=== PATIENT | female | born 1950 | race Caucasian/White ===

== ENCOUNTER → 2016-10-29 | Outpatient (CLI) | payer OTHER ==
[~2016-10-29] MED LIST: INVOKANA100 M1 PO; METFORMIN HCL1000 MG PO; NEURONTIN300 MG PO; OMEPRAZOLE D/R20 MG PO; PRAVASTATIN SOD20 MG PO; Synthroid,Levo88 MCG PO; TRADJENTA5 M1 PO; ZESTORETIC 20-1 EACH PO; ZOSTAVAX V19400 UNIT SQ
[2016-10-29 15:19] LABS: ACT PARTIAL THROMBO TIME 25.5 SECONDS (20.8-31.5)
== END | disposition home or self-care (01) ==
LOC: LAB 12:42
PROVIDERS: Orthopaedic Surgery
DX: Z01.818 Encounter for other preprocedural examination (principal); M17.11 Unilateral primary osteoarthritis, right knee; D68.8 Other specified coagulation defects; Z79.899 Other long term (current) drug therapy; Z96.651 Presence of right artificial knee joint

== ENCOUNTER → 2016-10-30 | Outpatient (CLI) | payer OTHER ==
[2016-10-30 12:55] LABS: BILIRUBIN NEGATIVE (NEGATIVE); BLOOD NEGATIVE (NEGATIVE); CLARITY SL CLOUDY (CLEAR); COLOR YELLOW (YELLOW); GLUCOSE 3+ (NEGATIVE); KETONE NEGATIVE (NEGATIVE); LEUKO ESTERASE 1+ (NEGATIVE); NITRITE NEGATIVE (NEGATIVE); SPECIFIC GRAVITY <= 1.005 (1.005-1.030); UROBILINOGEN 0.2 E.U./dl (0.2-1.0)
[2016-10-30 13:29] LABS: BACTERIA 2+; RBC 0-2 rbc/hpf (0-2)
== END | disposition home or self-care (01) ==
LOC: LAB 11:43
PROVIDERS: Orthopaedic Surgery
DX: M17.11 Unilateral primary osteoarthritis, right knee (principal); D68.8 Other specified coagulation defects; Z79.899 Other long term (current) drug therapy

== ENCOUNTER 2016-11-05 03:06 | Inpatient (IN) | payer OTHER ==
[2016-11-05] VITALS (11 sets, daily range): BP systolic 98–145; BP diastolic 49–81
[~2016-11-05] VITALS: Ht 162.6 cm; Wt 78.0 kg
--- NOTE | ~2016-11-05 | O ---
[place], [place] OPERATIVE NOTE NAME: SHEELA CANALES [facility] #: [id number] UNIT #: [id number] ROOM: [facility] DOCTOR: ARYA REYNOSO DO BIRTHDATE: [birth year] DOS: 11/05/2016 PREOPERATIVE DIAGNOSIS: Osteoarthritis, right knee. POSTOPERATIVE DIAGNOSIS: Osteoarthritis, right knee. PROCEDURE: Right total knee arthroplasty (Biomet Vanguard size 60 mm open box femur, 63 mm tibial baseplate, 10 mm PS plus poly insert, Palacos cement). ANESTHESIA: Spinal sedation. SURGEON: Arya Reynoso D.O. ESTIMATED BLOOD LOSS: 75 mL. COMPLICATIONS: None. INDICATIONS FOR PROCEDURE: This is a 66-year-old female seen in the office regarding chronic right knee pain. Please see details of the office note regarding additional patient's clinical history, findings, and indications for surgery. The patient has advanced right knee osteoarthritis and has failed nonsurgical treatment. I therefore did discuss with her options for surgery. Recommendations were for right total knee arthroplasty. Benefits, risks, complications were discussed with the patient as noted. Informed consent obtained. DESCRIPTION OF PROCEDURE: With the patient having been identified and the operative limb marked, she was taken to the operative suite, transferred to the position, administered a spinal anesthetic by the Department of Anesthesia. She was then repositioned supine. Sedation was provided during the case as per Anesthesia. A Jean Baptiste catheter was placed. A well-padded thigh tourniquet placed on the right lower leg. Right leg was then prepped and draped in the usual sterile fashion. Prior to elevation of the tourniquet, IV Ancef 2 grams had been given. Again, right leg prepped and draped in the usual sterile fashion. Esmarch bandage used to exsanguinate, the limb tourniquet elevated to 300 mmHg. An indelible marker was used to antonio an incision from just above the patella to the medial side of the tibial tubercle. Sharp dissection carried through skin and subcutaneous tissue and fat down to the quadriceps and patellar tendon and medial retinaculum. With sharp dissection, a standard median parapatellar arthrotomy was performed. Moderate clear yellow fluid suctioned from the knee joint. The patient had varus deformity. Medial release performed in the upper and medial tibial plateau. The infrapatellar fat pad was excised. Medial and lateral collateral retractors placed. Knee was put in flexion. The patient had [id number] changes, grade 4 medial compartment, large notch osteophytes noted as well. Large femoral tibial osteophytes noted and removed. Remnants of the ACL, PCL, medial and lateral meniscus were excised. Notch osteophytes were removed. A collateral retractor was placed posterior for protection of the neurovascular bundle and ____ of the tibia anterior. An indelible marker was used to antonio the tibial crest for alignment purposes. An external tibial alignment guide was positioned and pinned. Depths of cut reference from [place], [place] OPERATIVE NOTE NAME: SHEELA CANALES UNIT #: [id number] ROOM: [facility] DOCTOR: ARYA REYNOSO DO BIRTHDATE: [birth year] preoperative templating. An oscillating saw was used to perform an upper tibial osteotomy. Excess bone passed to the back table. Attention turned to the distal femur. Power drill was used to open up the medullary canal, and marrow contents were suctioned. An intramedullary rosa with a 5-degree valgus paddle was used to position cutting block of the distal femur. A standard cut was taken, bone passed to the back table. Attention turned to establishing size and rotation. This was based off the posterior condyles in 3 degrees of external rotation. Two pin holes made in the distal femur. A 60 mm cutting block position and pinned, just the posterior condyles were cut. Posterior osteophytes removed with an osteotome. Flexion and extension gaps were checked. A 10 block placed in flexion, gave a very good balance. No varus or valgus instability; removed, brought the knee fully extended. No varus or valgus instability. Attention then turned to the distal femur. Once again, the 60 mm cutting block was repositioned and pinned. Anterior and posterior chamfer cuts were finished. Block was removed and exchanged for the box cutting guide. Box cutting guide positioned and pinned. Box cuts were finished with the reciprocating saw and chisel. Two PEG hole drills made in the distal femur. Attention turned to the upper tibia. Tibial tubercle marked for position and rotation alignment. A 63 mm tibial baseplate have best coverage. Standard chisel used to cut the fins. Provisional reduction was then done with a 10 mm trial poly, 63 mm tibial baseplate and 60 mm open box femur. The knee was reduced. Range of motion 0 to about 140 degrees on gravity. No varus or valgus instability ____ 0-69 degrees. No anterior or posterior instability. Patellar tracking was central. No patellar tilt, subluxation or dislocation. No patellar grinding or crepitation. Osteophytes were removed from around the patella and some soft tissues excised. Knee was put back in flexion. All trial components were removed. Cement holes were made in the medial and lateral femoral condyle with a power drill. Bone was copiously irrigated with pulsatile lavage and dried. Palacos cement used to cement a 63 mm tibial baseplate and 60 mm open box femur. Excess cement was removed. Cement was allowed to harden with the trial poly in place with the knee fully extended and under compression. After cement was hardened, final trial range of motion with a 10 polys showed range of motion, stability and patellar tracking as noted. No varus or valgus instability, no anterior instability. Knee was put back in flexion. Trial poly was removed. The knee was inspected. No loose bone fragments or retained cement was noted. Tourniquet was released. Immediate bleeding noted and controlled with electrocautery. The tibial baseplate was exposed, irrigated, dried and a permanent 10 mm PS plus placed, locking bar was engaged. Prior to reduction, knee was copiously irrigated once again and then reduced. Final range of motion and stability as noted. A sterile Hemovac drain was placed through the superior lateral patellar pouch. Prior to closure, knee was copiously irrigated one final time and then closed. Knee was closed in about 100 degrees of flexion. #1 Vicryl was used to close median parapatellar arthrotomy, 3-0 Monocryl used for subcutaneous closure, lauryn used on skin. Sterile dressings applied, Xeroform, 4 x 4s, ABD, Webril and Earle wrap from mid thigh to mid calf. With the patient having tolerated the procedure well, all sponge and needle counts being correct, the patient was transferred to her hospital cart and to recovery in stable and satisfactory condition. [place], [place] OPERATIVE NOTE NAME: SHEELA CANALES Carol UNIT #: [id number] ROOM: [facility] DOCTOR: ARYA REYNOSO DO BIRTHDATE: [birth year] ARYA REYNOSO DO CM:NORY:OPERATIVE NOTE 1105 [id number] ARYA REYNOSO DO 11/06/16 0647 interface
--- NOTE | 2016-11-05 10:00 | NUR ---
PT. A&OX3 RESP EASY REG NON-LABORED POX 96%-97% ON RA. VITAL SIGNS STABLE PT. HAS HEMOVAC DRAIN WITH EBL OFF 450 SINGH CATH DRAINING CLEAR URINE OUTPUT OF 850 PEDAL PULSES +3 BIALT FEET. EXTREMITIES WARM AND PINK. LEFT LEG HAS SCD IN PLACE. RIGHT KNEE DRESSING DRY AND INTACT. PT. HAS NO COMPLAINTS AT THIS TIME.
--- NOTE | 2016-11-05 11:25 | NUR ---
Time: 1124 A 66 year old FEMALE admitted to under services of RUTHIE BUSTAMANTE DO. Pt. arrived via stretcher from OR. Chief complaint: S/P RIGHT KNEE ARTHROPLASTY.. BLADE HUANG
[2016-11-05] MEDS ORDERED: CIPRO500 MG PO (11:39)
--- NOTE | 2016-11-05 12:01 | NUR ---
MEDICATED PO NORCO FOR C/O POST OP PAIN. RATES PAIN 10/10.
--- NOTE | 2016-11-05 12:10 | NUR ---
PT. INSTRUCTED ON I/S. PT ACHIEVED A VOLUME OF 1500 TO 2000. Q1 HOUR USE GIVEN AND TO TAKE HOME WHEN DISCHARGED. GOOD EFFORT. FAMILY AT BEDSIDE.
--- NOTE | 2016-11-05 13:01 | NUR ---
PHYSICAL THERAPY PAtient too nausious for evaluation at this time. Thank you for this referral. Evangelina Poole,PT
--- NOTE | 2016-11-05 13:12 | NUR ---
ZOFRAN GIVEN FOR C/O NAUSEA, NORCO GIVEN FOR C/O RT KNEE PAIN. WILL MONITOR.
--- NOTE | 2016-11-05 14:17 | NUR ---
NORCO NOT EFFECTIVE PER PT. NOTIFIED DR. CANTU. NEW ORDERS GIVEN.
--- NOTE | 2016-11-05 14:18 | NUR ---
ZOFRAN EFFECTIVE PER PT.
--- NOTE | 2016-11-05 14:28 | NUR ---
PHYSICAL THERAPY PAtient now awaiting pain medication, Both patient and multiple family members requests no PT at this time. Will attempt in the AM tomorrow. Educated patient and family to have nursing complete dangling on edge of bed later this evening and bed to chair, good understanding. Thank you for this referral. Evangelina Poole.PT
--- NOTE | 2016-11-05 14:35 | NUR ---
MORPHINE GIVEN FOR C/O RT KNEE PAIN. RATES 10/10 ON PAIN SCALE. WILL MONITOR.
--- NOTE | 2016-11-05 16:34 | NUR ---
MORPHINE GIVEN FOR C/O RT KNEE PAIN. RATES 8/10 ON PAIN SCALE. WILL MONITOR.
--- NOTE | 2016-11-05 17:30 | NUR ---
MORPHINE NOT [id number] PER PT. WILL MONITOR.
--- NOTE | 2016-11-05 18:33 | NUR ---
IM TORADOL GIVEN FOR C/O RT KNEE PAIN. RATES 8/10 ON PAIN SCALE. WILL MONITOR.
--- NOTE | 2016-11-05 20:18 | NUR ---
PATIENT MEDICATED WITH PRN PERCOCET ORDERED FOR RIGHT KNEE PAIN RATED A 10.
--- NOTE | 2016-11-05 20:30 | NUR ---
PATIENT IS RESTING IN BED WITH FAMILY AT BEDSIDE. C/O RIGHT KNEE PAIN. RESPIRATIONS ARE EASY/REG. CLAMPED HEMOVAC DRAIN PER DR HEATH ORDERS. CALL LIGHT IS IN REACH.
--- NOTE | 2016-11-05 21:30 | NUR ---
PATIENT STATES EARLIER PERCOCET WAS EFFECTIVE IN DECREASING HER PAIN TO A 5.
[2016-11-06] VITALS: BP 126/72
[2016-11-06 06:17] LABS: BASO % 0.4 % (0.0-1.0); EOS # 0.2 10*3/uL (0.0-0.4); EOS % 1.8 % (1.0-4.0); HEMATOCRIT 29.5 % (37.0-47.0); HEMOGLOBIN 9.7 g/dl (12.0-16.0); LYMPH # 2.1 10*3/uL (1.3-4.4); LYMPH % 25.2 % (27.0-41.0); MEAN CORPUSCULAR HGB 28.6 pg (27.0-31.0); MEAN CORPUSCULAR HGB CONC 32.9 g/dl (33.0-37.0); MEAN PLATELET VOLUME 10.5 fl (9.6-12.3); MONO # 0.9 10*3/uL (0.1-1.0); NEUT # 5.1 10*3/uL (2.3-7.9); NEUT % 61.1 % (47.0-73.0); PLATELET COUNT AUTOMATED 174 10*3/uL (130-400); RED BLOOD COUNT 3.39 10*6/uL (4.10-5.10); RED CELL DISTRI WIDTH 13.1 % (0-14.5); WHITE BLOOD COUNT 8.4 10*3/uL (4.8-10.8)
--- NOTE | 2016-11-06 06:51 | NUR ---
PATIENT SLEPT T/O SHIFT WITH NO COMPLAINTS. CURRENTLY RESTING IN BED. NO SXS OF DISTRESS. CALL LIGHT IS IN REACH. DRAIN CLAMPED AT THIS TIME.
[2016-11-06 08:00] VITALS: BP 127/65
--- NOTE | 2016-11-06 08:51 | NUR ---
PHYSICAL THERAPY PAtient evaluated on 5, full evaluation to follow. Continue with PT as per plan of care with fall amd acute right TKA precautions. PAtient refuses SNF, will require home health RN and PT. PAtient is medium complexity via chart review tests and evaluation: 15651. Thank you for this referral. Evangelina duncan,PT
--- NOTE | 2016-11-06 09:12 | NUR ---
PT MEDICATED WITH PRN PERCOCET - 2 TABS FOR C/O PAIN AFTER AMBULATION. PT RATES PAIN 6/10 IN RIGHT KNEE. WILL CONTINUE TO MONITOR. PT UP IN CHAIR WITH HER DAUGHTER THE THE THERESE.
--- NOTE | 2016-11-06 10:15 | NUR ---
SINGH CATHETER DISCONTINUED.
--- NOTE | 2016-11-06 11:32 | NUR ---
HEMOVAC REMOVED PER ORDER FROM DR. HEATH.
[2016-11-06 12:00] VITALS: BP 136/43
--- NOTE | 2016-11-06 12:49 | NUR ---
PHYSICAL THERAPY Farnaz was seen this PM 1:1 for her therapy and is doing very well, Pt has IV Pole, and right TKA and WBAT. Transfer sit/stand, standing balance MIN A X 1, up on wheeled walker. Gait total 110' X 1, W/W and verbal cueing for step length with improvement in her limp and did well with WBAT. Pt back up in her bedside chair short sitting rest. Followed by act quad sets, ankle pumps and heel slides with cueing for each Ex and very little pain. Pt with call light and no complaint. PRINCESS ARORA STUDIO GRIP.
[2016-11-06 13:01] LABS: ALBUMIN 2.8 gm/dl (3.1-4.5); ALKALINE PHOSPHATASE 74 U/L (45-117); BUN 12 mg/dl (7-24); CHLORIDE 103 mmol/L (98-107); CREATININE 0.91 mg/dL (0.55-1.02); POTASSIUM 4.1 mmol/L (3.5-5.1); SGOT/AST 12 IU/L (3-35); SGPT/ALT 14 U/L (12-78); SODIUM 137 mmol/L (136-145); TOTAL PROTEIN 5.9 gm/dL (6.4-8.2)
--- NOTE | 2016-11-06 15:15 | NUR ---
town planner in to see patient. She stated she is fine with going home and refusing skilled rehab. She was receptive to visiting nurses and home physical therapy. Provided patient with list of home health agencies, patient asked [facility].
--- NOTE | 2016-11-06 15:28 | NUR ---
ONE UNIT PACKED RED BLOOD CELLS INFUSING PER ORDER.
[2016-11-06 20:33] VITALS: BP 123/53
--- NOTE | 2016-11-06 22:08 | NUR ---
PATIENT MEDICATED WITH PRN MORPHINE ORDERED FOR C/O RIGHT KNEE PAIN RATED A 6. WILL FOLLOW UP EFFECTIVENESS
--- NOTE | 2016-11-06 23:15 | NUR ---
PATIENT STATES EARLIER MORPHINE WAS EFFECTIVE IN REDUCING HER LEG PAIN.
[2016-11-07] VITALS: BP 92/65
[2016-11-07 06:48] LABS: BASO % 0.4 % (0.0-1.0); EOS # 0.2 10*3/uL (0.0-0.4); EOS % 3.3 % (1.0-4.0); HEMATOCRIT 27.7 % (37.0-47.0); LYMPH # 1.9 10*3/uL (1.3-4.4); LYMPH % 26.2 % (27.0-41.0); MEAN CELL VOLUME 87.7 fl (81.0-99.0); MEAN CORPUSCULAR HGB 28.5 pg (27.0-31.0); MEAN CORPUSCULAR HGB CONC 32.5 g/dl (33.0-37.0); MEAN PLATELET VOLUME 10.4 fl (9.6-12.3); MONO # 0.8 10*3/uL (0.1-1.0); MONO % 11.3 % (3.0-9.0); NEUT # 4.3 10*3/uL (2.3-7.9); NEUT % 58.4 % (47.0-73.0); PLATELET COUNT AUTOMATED 162 10*3/uL (130-400); RED BLOOD COUNT 3.16 10*6/uL (4.10-5.10); RED CELL DISTRI WIDTH 13.4 % (0-14.5); WHITE BLOOD COUNT 7.3 10*3/uL (4.8-10.8)
[2016-11-07 08:00] VITALS: BP 106/57
--- NOTE | 2016-11-07 09:13 | NUR ---
PHYSICAL THERAPY Farnaz seen this AM 1:1 for her therapy session with much improvement. Pt was up in her bedside chair. All transfers were independent. Gait with wheeled walker WBAT, 180' supervision X 1, no LOB and improving with step stride. Pt back up in her bedside chair. Followed rom to Pt's right knee improvement rom and her pain, Pt with call light, phone no complaints. PRINCESS ARORA [employer] PROFESSOR.
--- NOTE | 2016-11-07 10:02 | NUR ---
MEDICATED WITH PRN PO PERCOCET ONE TAB FOR RIGHT KNEE PAIN.
--- NOTE | 2016-11-07 11:09 | NUR ---
PRN PO PERCOCET EFFECTIVE, PER PATIENT.
--- NOTE | 2016-11-07 12:10 | NUR ---
DR. HEATH IN TO SEE PATIENT RE: PLAN OF CARE, CHANGE POST OP RIGHT KNEE DRESSING, AND ENTER DISCHARGE ORDERS.
--- NOTE | 2016-11-07 14:09 | NUR ---
Discharge instructions reviewed with patient/family. Patient receptive and verbalizes understanding. Follow-up care arranged. Written instructions given to patient/family. CASE MANAGEMENT TO PROVIDE PATIENT WITH ADDITIONAL INFORMATION RE: HOME PHYSICAL THERAPY SERVICES. ROSAURA NAM
--- NOTE | 2016-11-07 14:30 | NUR ---
DR. HEATH'S OFFICE STAFF NOTIFIED THAT PATIENT NEEDING PRESCRIPTION FOR WALKER D/T PARTIAL WEIGHT-BEARING STATUS AND WOULD LIKE THIS CALLED TO [facility]. [facility], FOR TRANSPORT HOME BY PRIVATE VEHICLE WITH FAMILY.
--- NOTE | 2016-11-07 15:09 | NUR ---
Received order for home health/PT, patient asked for [facility]. Faxed order and clincals for referral.
--- NOTE | 2016-11-08 07:43 | NUR ---
PHYSICAL THERAPY CO-SIGN I approve of the Phyical Therapy notes written above. DAYANNA TAYLOR PT
== END 2016-11-07 14:09 | disposition home health service (06) | DRG 470 ==
LOC: SDC 03:06 → 5E 07:42 → SDC 09:30 → 5E 11-07 14:09
PROVIDERS: ADMIT Orthopaedic Surgery
PROC: 0SRC0J9 Replacement of Right Knee Joint with Synthetic Substitute, Cemented, Open Approach (ICD-10-PCS; principal; 2016-11-05)
DX: M17.11 Unilateral primary osteoarthritis, right knee (principal); E11.42 Type 2 diabetes mellitus with diabetic polyneuropathy; N39.0 Urinary tract infection, site not specified; I10 Essential (primary) hypertension; E89.0 Postprocedural hypothyroidism; E78.5 Hyperlipidemia, unspecified; K21.9 Gastro-esophageal reflux disease without esophagitis; Z90.710 Acquired absence of both cervix and uterus; Z80.1 Family history of malignant neoplasm of trachea, bronchus and lung; Z83.6 Family history of other diseases of the respiratory system; Z88.6 Allergy status to analgesic agent; Z79.84 Long term (current) use of oral hypoglycemic drugs; Z79.899 Other long term (current) drug therapy